=== PATIENT | female | born 1990 | race Caucasian/White ===

== ENCOUNTER 2018-01-02 18:02 | Inpatient (IN) | payer OTHER ==
[2018-01-02] MEDS: ACETAMINOPHEN 325 MG TABLET. PO (18:56)
[2018-01-02] MEDS: IV NORMAL SALINE 1000ML BAG 1,000 ML IV ×2 (18:56→20:25)
[2018-01-02] MEDS: fentaNYL PF VIAL 100 MCG/2 ML VIAL IV ×2 (18:57→20:20)
[2018-01-02 19:11] LABS: ADD MAN DIFF? NO
[2018-01-02 19:13] LABS: BASO % 0 % (0-3); EOS % 0 % (0-3); HEMATOCRIT 29.1 % (36.0-47.0); LYMPH # 0.7 x10^3/uL (1.0-4.8); LYMPH % 6 % (24-48); MEAN CORPUSCULAR HEMOGLOBIN 28 pg (25-35); MEAN CORPUSCULAR HGB CONC 34 g/dL (31-37); MEAN CORPUSCULAR VOLUME 82 fL (79-100); MONO # 0.9 x10^3/uL (0.0-1.1); MONO % 8 % (0-9); NEUT # 8.9 x10^3uL (1.8-7.7); NEUT % 85 % (31-73); PLATELET COUNT 293 x10^3/uL (140-400); RED BLOOD COUNT 3.57 x10^6/uL (3.50-5.40); WHITE BLOOD COUNT 10.5 x10^3/uL (4.0-11.0)
[2018-01-02 19:23] LABS: ANION GAP 9 (6-14); BLOOD UREA NITROGEN 8 mg/dL (7-20); BUN/CREATININE RATIO 11 (6-20); CARBON DIOXIDE 22 mmol/L (21-32); CHLORIDE 100 mmol/L (98-107); CREATININE 0.7 mg/dL (0.6-1.0); GFR 100.4; GLUCOSE 115 mg/dL (70-99); POTASSIUM 4.5 mmol/L (3.5-5.1); SODIUM 131 mmol/L (136-145)
[2018-01-02 19:24] LABS: INR 1.1 (0.8-1.1); PARTIAL THROMBOPLASTIN TIME 25 SEC (24-38); PROTHROMBIN TIME PATIENT 13.5 SEC (11.7-14.0)
[2018-01-02 19:29] LABS: ALBUMIN 2.6 g/dL (3.4-5.0); ALBUMIN/GLOBULIN RATIO 0.6 (1.0-1.7); ALK PHOS 115 U/L (46-116); ALT (SGPT) 74 U/L (14-59); AST (SGOT) 47 U/L (15-37); TOTAL BILIRUBIN 0.4 mg/dL (0.2-1.0); TOTAL PROTEIN 6.7 g/dL (6.4-8.2)
[2018-01-02] MEDS ORDERED: AMPICILLIN SODIUM 1 GM in IV NORMAL SALINE 50ML 50 ML IV (20:30)
[2018-01-02] MEDS: AMPICILLIN SODIUM IV Push 1 GM VIAL. IVP (20:52)
[2018-01-02] MEDS: oxyCODONE/APAP 5/325 1 TAB TABLET PO (23:55)
[2018-01-03] MEDS: oxyCODONE/APAP 5/325 1 TAB TABLET PO (04:02)
[2018-01-03] MEDS ORDERED: fentaNYL PF VIAL 100 MCG/2 ML VIAL IV ×2 (10:00)
[2018-01-03] MEDS ORDERED: LIDOCAINE 1% PF 2 ML VIAL. ID (10:00)
[2018-01-03] MEDS ORDERED: MORPHINE SULFATE 4 MG/ML DISP.SYRIN. IV (10:00)
[2018-01-03] MEDS ORDERED: ONDANSETRON PF 4 MG/2 ML VIAL. IV (10:00)
[2018-01-03] MEDS ORDERED: PROCHLORPERAZINE 10 MG/2 ML VIAL. IV (10:00)
[2018-01-03] MEDS: IV RINGERS,LACTATED 1000ML 1,000 ML IV (13:19)
[2018-01-03] MEDS ORDERED: FAMOTIDINE 20 MG/2 ML VIAL (14:11)
[2018-01-03] MEDS ORDERED: PROPOFOL 20 ML IV (14:11)
[2018-01-03] MEDS ORDERED: LIDOCAINE 2% PF Vial for OR 5 ML VIAL. (14:11)
[2018-01-03] MEDS ORDERED: DEXAMETHASONE SOD PHOS 20 MG/5 ML VIAL. (14:11)
[2018-01-03] MEDS ORDERED: ONDANSETRON PF 4 MG/2 ML VIAL. (14:11)
[2018-01-03] MEDS ORDERED: SEVOFLURANE 16 TO 30 MINUTES. IH (14:53)
[2018-01-03] MEDS ORDERED: OXYTOCIN 10 UNIT/ML VIAL. ×2 (14:59→15:00)
[2018-01-03] MEDS ORDERED: PHENYLEPHRINE in 0.9% NACL PF 1 MG/10 ML SYRINGE. IV (15:04)
[2018-01-03 15:44] LABS: HEMOGLOBIN 8.9 g/dL (12.0-15.5); MEAN CORPUSCULAR HEMOGLOBIN 28 pg (25-35); MEAN CORPUSCULAR HGB CONC 34 g/dL (31-37); MEAN CORPUSCULAR VOLUME 82 fL (79-100); PLATELET COUNT 233 x10^3/uL (140-400); RED BLOOD COUNT 3.18 x10^6/uL (3.50-5.40); WHITE BLOOD COUNT 4.8 x10^3/uL (4.0-11.0)
[2018-01-06 16:17] LABS: CHLAMYDIA PROBE Negative (Negative); GC PROBE Negative (Negative)
== END 2018-01-03 19:45 | disposition home or self-care (01) | DRG 770 ==
LOC: ER 18:02 → 5 NORTH 20:00
PROC: 10D17ZZ Extraction of Products of Conception, Retained, Via Natural or Artificial Opening (ICD-10-PCS; principal; 2018-01-03 14:00)
DX: O03.0 Genital tract and pelvic infection following incomplete spontaneous abortion (principal); N71.9 Inflammatory disease of uterus, unspecified; O46.91 Antepartum hemorrhage, unspecified, first trimester
CPT/HCPCS: 36415; 76801; 76817; 80053; 84702; 85025; 85027; 85610; 85730; 86850; 86900; 86901; 87491; 87591; 93005; 96361; 96374; 96375; 96376; 99285-25; J0290; J0690; J1100; J2370; J2405; J2590; J2704; J3010; J7030; J7120; S0028